=== PATIENT | female | born 1985 | race Caucasian/White ===

== ENCOUNTER 2022-03-14 00:55 | Emergency (ER) | payer OTHER ==
[~2022-03-14] VITALS: Ht 170.2 cm; Wt 63.5 kg
[2022-03-14 01:17] VITALS: BP 170/94
--- NOTE | 2022-03-14 01:23 | NUR ---
TRIAGE COMPLETE, PT STABLE AND SENT TO LOBBY.
[2022-03-14] MEDS ORDERED: HYDR-5191 PO (02:07)
[2022-03-14] MEDS ORDERED: CLIN300C2 PO (02:07)
[2022-03-14] MEDS ORDERED: IBUP-2213 PO (02:07)
--- NOTE | 2022-03-14 02:20 | NUR ---
PATIENT SEEN AND ASSESSED BY CYRUS ALVARADO. NO NURSING INTERVENTIONS. CYRUS ALVARADO Written and verbal after care instructions given and explained BY CYRUS ALVARADO. Rx of CLEOCIN, HYDROCODONE/ACETAMINOPHEN AND IBUPROFEN given. Patient educated on indication of medication including possible reaction and side effects BY CYRUS ALVARADO. Opportunity to ask questions provided and answered BY CYRUS ALVARADO.
== END 2022-03-14 02:20 | disposition home or self-care (01) ==
LOC: MED 00:55
DX: K04.7 Periapical abscess without sinus (principal)
CPT/HCPCS: 99283

== ENCOUNTER 2023-05-22 18:46 | Emergency (ER) | payer MEDICAID, OTHER ==
[~2023-05-22] VITALS: Ht 170.2 cm; Wt 73.1 kg
[~2023-05-22 18:46] MED LIST: CLIN300C2 PO; HYDR-5191 PO; IBUP-2213 PO
[2023-05-22 18:49] VITALS: BP 135/93; PULSE 105; RESP 20; TEMP 98; O2SAT 96
[2023-05-22] MEDS ORDERED: OLANZapine 5 MG ODT SL ONE (19:15)
[2023-05-22] MEDS ORDERED: LORazepam 0.5 MG TAB PO ONE (19:15)
[2023-05-22 19:50] LABS: BASOPHILS % (AUTO) 0.7 % (0.0-2.0); EOSINOPHILS # (AUTO) 0.3 K/uL (0-0.4); EOSINOPHILS % (AUTO) 5.1 % (0.0-4.0); HEMATOCRIT 31.9 % (36-48); HEMOGLOBIN 11.2 g/dL (12.0-16.0); LYMPHOCYTES # (AUTO) 2.1 K/uL (2.5-16.5); LYMPHOCYTES % (AUTO) 33.2 % (20.5-51.1); MEAN CORPUSCULAR HEMOGLOBIN 32 pg (27-31); MEAN CORPUSCULAR HGB CONC 35 g/dL (33-37); MEAN CORPUSCULAR VOLUME 91.4 fL (80-94); MONOCYTES # (AUTO) 0.7 K/uL (0.8-1.0); MONOCYTES % (AUTO) 11.5 % (1.7-9.3); NEUTROPHILS # (AUTO) 3.2 K/uL (1.8-7.7); NEUTROPHILS % (AUTO) 49.5 % (42.2-75.2); PLATELET COUNT (AUTO) 424 K/uL (140-450); RED BLOOD CELL COUNT(AUTO) 3.49 MIL/uL (4.20-5.40); RED CELL DISTRIBUTION WIDTH 14.3 % (11.6-13.7); WHITE BLOOD COUNT (AUTO) 6.4 K/uL (4.8-10.8)
[2023-05-22 20:02] LABS: ALANINE AMINOTRANSFERASE 23 U/L (12-78); ALBUMIN 3.6 g/dL (3.4-5.0); ALCOHOL, BLOOD < 3 mg/dL (<10); ALKALINE PHOSPHATASE 112 U/L (50-136); ASPARTATE AMINOTRANSFERASE 25 U/L (15-37); CALCIUM 8.7 mg/dL (8.5-10.1); CARBON DIOXIDE 29.5 mmol/L (21-32); CHLORIDE 99 mmol/L (98-107); CREATININE 0.7 mg/dL (0.6-1.3); GFR ARICAN-AMERICAN 120 mL/min (>90); GFR NON ARICAN-AMERICAN 99 mL/min (>90); GLUCOSE 113 mg/dL (74-106); POTASSIUM 3.5 mmol/L (3.5-5.1); SODIUM SERUM 137 mmol/L (136-145); TOTAL BILIRUBIN 0.3 mg/dL (0.0-1.0); TOTAL PROTEIN, SERUM 7.7 g/dL (6.4-8.2); UREA NITROGEN, BLOOD 14 mg/dL (7-18)
[2023-05-22 20:03] LABS: SALICYLATE < 2.8 mg/dL (2.8-20.0)
[2023-05-22 20:04] LABS: ACETAMINOPHEN < 0.5 ug/ml (10-30)
[2023-05-22 21:21] VITALS: BP 135/93; PULSE 105; RESP 20; TEMP 98; O2SAT 96
[2023-05-22] MEDS ORDERED: OLAN5ODT9 PO (21:21)
[2023-05-22] MEDS ORDERED: HYDR25CA1 PO (21:21)
== END 2023-05-22 21:21 | disposition home or self-care (01) ==
LOC: MED 18:46
DX: F15.959 Other stimulant use, unspecified with stimulant-induced psychotic disorder, unspecified (principal); F19.90 Other psychoactive substance use, unspecified, uncomplicated; F41.9 Anxiety disorder, unspecified; F10.90 Alcohol use, unspecified, uncomplicated; Z79.899 Other long term (current) drug therapy; Z79.1 Long term (current) use of non-steroidal anti-inflammatories (NSAID); Z79.2 Long term (current) use of antibiotics; Y90.0 Blood alcohol level of less than 20 mg/100 ml
CPT/HCPCS: 36415; 80053; 85025; 99283; G0480; G0482